=== PATIENT | female | born 1985 | race Caucasian/White ===

== ENCOUNTER 2020-07-15 00:39 | Observation (INO) ==
[2020-07-15] MEDS ORDERED: EPINEPHrine 1 MG/ML VIAL IM ONE (00:52)
[2020-07-15] MEDS ORDERED: Famotidine 20 MG/2 ML VIAL IVP ONE (00:53)
[2020-07-15] MEDS ORDERED: methylPREDNISolone 125 MG/2 ML VIAL IVP ONE (00:53)
[2020-07-15 01:32] LABS: Basophils % 0.3 %; Eosinophils # 0.1 K/mcL (0.0-0.6); Eosinophils % 1.4 %; Hematocrit 43.9 % (35.3-44.9); Hemoglobin 14.5 g/dL (11.5-15.4); Immature Granulocytes % 0.1 % (0-4); Lymphocytes # 2.6 K/mcL (0.6-4.6); Lymphocytes % 35.9 %; Mean Corpuscular Hemoglobin 30.9 pg (28.0-33.3); Mean Corpuscular Volume 93.6 fL (83.0-100.0); Mean Platelet Volume 9.8 fL (9.4-12.4); Monocytes # 0.5 K/mcL (0.0-1.3); Monocytes % 7.1 %; Neutrophils # 4.1 K/mcL (1.6-8.9); Platelet Count 206 K/mcL (140-400); Red Blood Count 4.69 M/mcL (3.82-4.97); Red Cell Distribution Width 11.6 % (11.5-14.5); Segmented Neutrophils % 55.2 %; White Blood Count 7.4 K/mcL (4.3-11.1)
[2020-07-15 01:51] LABS: BUN/Creatinine Ratio 40 (6-26); Blood Urea Nitrogen 24 mg/dL (6-20); Calcium 8.5 mg/dL (8.6-10.3); Carbon Dioxide 23 mEq/L (23-29); Chloride 106 mEq/L (98-107); Glucose 100 mg/dL (70-105); Osmolality,Calculated 288 (280-300); Potassium 3.7 mEq/L (3.5-5.1); Sodium 137 mEq/L (136-145); eGFR For African Americans > 60 (> 60); eGFR For Non-African Americans > 60 (> 60)
[2020-07-15] MEDS ORDERED: Naloxone 0.4 MG/ML INJ IVP PRN (04:05)
[2020-07-15] MEDS ORDERED: Ondansetron ODT 4 MG TAB.RAPDIS SL PRN (04:05)
[2020-07-15] MEDS ORDERED: SUMAtriptan succinate 25 MG TABLET PO ONE (05:25)
[2020-07-15 05:33] LABS: Alanine Aminotransferase 14 Units/L (7-52); Albumin 3.9 g/dL (3.5-5.7); Albumin/Globulin Ratio 1.6 (1.1-2.2); Alkaline Phosphatase 52 Units/L (34-104); Aspartate Amino Transferase 14 Units/L (13-39); Bilirubin,Direct 0.1 mg/dL (0.0-0.2); Bilirubin,Indirect 0.5 mg/dL (0.0-1.0); Bilirubin,Total 0.6 mg/dL (0.3-1.0); C-Reactive Protein < 5 mg/L (Less than 10); Globulin 2.4 g/dL (2.4-3.5); Total Protein 6.3 g/dL (6.4-8.9)
[2020-07-15] MEDS ORDERED: Acetaminophen 325 MG TABLET PO PRN (05:48)
[2020-07-15] MEDS ORDERED: Ipratropium/Albuterol Neb 3 ML IH PRN (05:48)
[2020-07-15 06:03] LABS: Adenovirus Not Detected (Not Detect); Bordetella Pertussis Not Detected (Not Detect); Chlamydophila pneumoniae Not Detected (Not Detect); Coronavirus 229E Not Detected (Not Detect); Coronavirus HKU1 Not Detected (Not Detect); Coronavirus NL63 Not Detected (Not Detect); Coronavirus OC43 Not Detected (Not Detect); Human Metapneumovirus Not Detected (Not Detect); Human Rhinovirus/Enterovirus Not Detected (Not Detect); Influenza A Subtype 2009 H1 Not Detected (Not Detect); Influenza B Not Detected (Not Detect); Mycoplasma pneumoniae Not Detected (Not Detect); Parainfluenza Virus 1 Not Detected (Not Detect); Parainfluenza Virus 2 Not Detected (Not Detect); Parainfluenza Virus 3 Not Detected (Not Detect); Parainfluenza Virus 4 Not Detected (Not Detect); Respiratory Syncytial Virus Not Detected (Not Detect); SARS-CoV-2 Not Detected (Not Detect)
[2020-07-15] MEDS: *HR* Heparin 5,000 UNIT/ML VIAL SQ SCH ×2 (06:05→17:43)
[2020-07-15 06:21] LABS: Thyroid Stimulating Hormone 2.385 mcIU/mL (0.340-5.600)
[2020-07-15] MEDS ORDERED: SUMAtriptan succinate 50 MG TABLET PO ONE (08:06)
[2020-07-15] MEDS: Loratadine 10 MG TABLET PO SCH ×2 (08:27→21:21)
[2020-07-15] MEDS ORDERED: Loratadine 10 MG TABLET PO SCH (09:00)
[2020-07-16] MEDS: *HR* Heparin 5,000 UNIT/ML VIAL SQ SCH (06:25)
[2020-07-16] MEDS: Loratadine 10 MG TABLET PO SCH (08:20)
[2020-07-16 11:06] VITALS: BP 108/68
[2020-07-18 10:13] LABS: C1 Esterase Inhibitor Ag 28 mg/dL (21-39); C1 Esterase Inhibitor, Funct 94 % (>=41)
== END 2020-07-16 12:45 | disposition home or self-care (01) ==
LOC: EMEROOARM 00:39 → 3NENU 00:39 → SUATTDRO 02:50 → 3NENU 03:21
PROVIDERS: ADMIT Family Medicine; ATTEND Internal Medicine